=== PATIENT | male | born 1975 | race Caucasian/White ===

== ENCOUNTER 2018-10-08 17:42 | Emergency (ER) | payer SELFPAY ==
[2018-10-08 17:55] VITALS: BP 124/75; PULSE 89; TEMP 98.3; BMI 33.0
--- NOTE | 2018-10-08 17:56 | PDOC ---
Rapid Medical Evaluation Chief Complaint: Respiratory Time Seen by Provider: 10/08/18 17:51 Medical Evaluation: Allergies Allergy/AdvReac Type Severity Reaction Status Date / Time No Known Allergies Allergy Verified 07/05/15 14:08 10/08/18 17:52 I have performed a brief in-person evaluation of this patient. The patient presents with a chief complaint of: pleuritic chest pain , URI- intermittant blood in sputum with severe cough. No Hx TB/ no exposures Pertinent physical exam findings: lungs clear , I have ordered the following: CxR The patient will proceed to the ED for further evaluation. 10/08/18 17:57 Discharge Disposition - Diagnosis Cough - Referrals - Patient Instructions - Post Discharge Activity
[2018-10-08] MEDS ORDERED: ALBUTEROL SO4 0.083% IH SOL 2.5 MG/3 ML VIAL.NEB. NEB ONE ×2 (18:28→18:30)
[2018-10-08] MEDS ORDERED: predniSONE 20 MG TABLET (UD) PO ONE (18:28)
[2018-10-08] MEDS ORDERED: predniSONE 20 MG TABLET (UD) ONE (18:30)
--- NOTE | 2018-10-08 18:36 | PDOC ---
History of Present Illness - General Chief Complaint: Respiratory Stated Complaint: COLD SYMPTOMS Time Seen by Provider: 10/08/18 17:51 History Source: Patient (cough X 3wks) Exam Limitations: No Limitations - History of Present Illness Associated Symptoms: reports: denies symptoms, chest pain/soreness, dizziness, fever/chills, lightheadedness, muscle aches, nasal congestion, nasal drainage, shortness of breath, other Past History - Travel Close contact w/someone who was outside of country & ill: No - Past Medical History Allergies/Adverse Reactions: Allergies Allergy/AdvReac Type Severity Reaction Status Date / Time No Known Allergies Allergy Verified 10/08/18 17:55 Home Medications: Ambulatory Orders Azithromycin [Zithromax 250mg Tablets -] 250 mg PO UTDICT #6 tab 10/08/18 Benzonatate [Tessalon Pearls -] 100 mg PO TID #21 capsule 10/08/18 COPD: No - Suicide/Smoking/Psychosocial Hx Smoking History: Never smoked Have you smoked in the past 12 months: No Hx Alcohol Use: Yes Drug/Substance Use Hx: No Substance Use Type: None Review of Systems - Review of Systems Constitutional: No: Chills, Fever Respiratory: Yes: Cough, Wheezing, Productive cough. No: Orthopnea, Shortness of Breath, SOB with Exertion, SOB at Rest, Stridor Cardiac (ROS): No: Chest Pain, Irregular Heart Rate, Lightheadedness, Palpitations, Syncope, Chest Tightness ABD/GI: No: Nausea, Vomiting Neurological: No: Headache, Dizziness *Physical Exam - Vital Signs Last Vital Signs Temp Pulse Resp BP Pulse Ox 98.3 F 89 16 124/75 98 10/08/18 17:52 10/08/18 17:52 10/08/18 17:52 10/08/18 17:52 10/08/18 17:52 - Physical Exam General Appearance: Yes: Nourished HEENT: positive: EOMI, GABBIE, TMs Normal, Pharynx Normal Respiratory/Chest: positive: Lungs Clear, Normal Breath Sounds Cardiovascular: positive: Regular Rhythm, Regular Rate, S1, S2 Gastrointestinal/Abdominal: positive: Normal Bowel Sounds, Soft Musculoskeletal: positive: Normal Inspection Extremity: positive: Normal Capillary Refill Integumentary: positive: Normal Color Neurologic: positive: web content & social media manager II-XII NML intact, Fully Oriented, Alert, Normal Mood/ Affect, Normal Response, Motor Strength 5/5 Medical Decision Making - Medical Decision Making 42y/o M non smoker, no prior med hx p/w productive cough X 3wks, + intermittent wheeze at night and throat pain denies h/o asthma, recent travel, palpation CXR no PNA HPI and exam c/w bronchitis meds given *DC/Admit/Observation/Transfer Diagnosis at time of Disposition: Cough, Bronchitis - Discharge Dispostion Disposition: HOME Condition at time of disposition: Stable Decision to Admit order: No - Prescriptions Prescriptions: Azithromycin [Zithromax 250mg Tablets -] 250 mg PO UTDICT #6 tab Benzonatate [Tessalon Pearls -] 100 mg PO TID #21 capsule - Referrals Referrals: Annmarie Mon MD [Primary Care Provider] - - Patient Instructions Printed Discharge Instructions: Sore Throat, Acute Bronchitis, DI for Acute Bronchitis Additional Instructions: Your preliminary chest xray was negative for pneumonia you will be contacted if the official reports reads otherwise your strep test was negative today take Motrin or Tylenol for pain, gargle with salt warm water. please take medication as prescribed Follow up with our PCP Return to the ER If worsening symptoms occurs. - Post Discharge Activity
[2018-10-08] MEDS ORDERED: ACETAMINOPHEN 325 MG TABLET (FP) PO ONE (18:57)
[2018-10-08] MEDS ORDERED: ACETAMINOPHEN 325 MG TABLET (FP) ONE (19:05)
== END 2018-10-08 19:07 | disposition home or self-care (01) ==
LOC: JERFT 17:42
PROC: 3E0F7GC Introduction of Other Therapeutic Substance into Respiratory Tract, Via Natural or Artificial Opening (ICD-10-PCS; principal; 2018-10-08)
DX: J40 Bronchitis, not specified as acute or chronic (principal)
CPT/HCPCS: 71046-TC-FY; 87070; 87880; 99281-25